=== PATIENT | male | born 1945 | race African-American/Black ===

== ENCOUNTER → 2023-01-13 | Outpatient (CLI) | payer MEDICARE ==
[~2023-01-13] MED LIST: GADOBENATE DIMEGLUMINE 1 ML IV ONE
[2023-01-13 12:10] LABS: CREATININE, SERUM 1.56 mg/dL (0.72-1.25)
== END ==
LOC: NM 11:00
PROVIDERS: ATTEND Urology
DX: R97.20 Elevated prostate specific antigen [PSA] (principal)
CPT/HCPCS: 36415; 72197; 78306; 82565; 84520; A9503